=== PATIENT | male | born 1960 | race Caucasian/White ===

== ENCOUNTER 2016-05-22 19:55 | Emergency (ER) | payer MEDICAID ==
[2015-03-30 08:30] VITALS: BMI 25.8
[~2016-05-22 19:55] MED LIST: HYZAAR 50-12.51 TAB PO; LISINOPRIL-HCTZ1 T11 PO; OXYCODONE HCL10 MG PO; PHENERGAN25 M1 PO; RESTORIL15 MG PO; SOMA350 MG PO; XANAX0.5 MG PO
[2016-05-22 21:14] LABS: BASOPHILS 0.1 % (0.0-2.0); EOSINOPHILS 0.8 % (0-7); HEMATOCRIT 48.4 % (42.0-54.0); HEMOGLOBIN 16.9 g/dL (13.5-17.5); IMMATURE GRANULOCYTES 0.2 % (0-5); LYMPHOCYTES 19.8 % (15-50); MCH 34.8 pg (26.0-34.0); MCHC 34.9 g/dL (31.0-37.0); MCV 99.8 fL (80.0-100.0); MEAN PLATELET VOLUME 9.7 fL (7.4-10.4); MONOCYTES 7.8 % (2-11); NEUTROPHILS 71.3 % (40-80); PLATELET COUNT 206 10x3/uL (130-400); RBC 4.85 10x6/uL (4.20-6.10); RDW 13.8 % (11.5-14.5); WBC 10.2 10x3/uL (4.8-10.8)
== END 2016-05-22 22:16 | disposition home or self-care (01) ==
LOC: D.ER 19:55
PROVIDERS: Physician Assistant Medical
DX: M70.51 Other bursitis of knee, right knee (principal); Y93.9 Activity, unspecified; I10 Essential (primary) hypertension; F17.200 Nicotine dependence, unspecified, uncomplicated

== ENCOUNTER → 2017-03-27 18:45 | Outpatient (CLI) | payer MEDICAID ==
[2015-03-30 08:30] VITALS: BMI 25.8
== END | disposition home or self-care (01) ==
LOC: D.LABREF 18:45
DX: R31.9 Hematuria, unspecified (principal)

== ENCOUNTER 2017-05-06 20:09 | Emergency (ER) | payer MEDICAID ==
[2015-03-30 08:30] VITALS: BMI 25.8
== END 2017-05-06 21:31 | disposition home or self-care (01) ==
LOC: D.ER 20:09
DX: J20.9 Acute bronchitis, unspecified (principal); J11.1 Influenza due to unidentified influenza virus with other respiratory manifestations; R50.9 Fever, unspecified; I10 Essential (primary) hypertension; F17.200 Nicotine dependence, unspecified, uncomplicated

== ENCOUNTER 2017-05-14 13:47 | Emergency (ER) | payer MEDICAID ==
[2015-03-30 08:30] VITALS: BMI 25.8
== END 2017-05-14 16:31 | disposition home or self-care (01) ==
LOC: D.ER 13:47
DX: S60.562A Insect bite (nonvenomous) of left hand, initial encounter (principal); W57.XXXA Bitten or stung by nonvenomous insect and other nonvenomous arthropods, initial encounter; Y93.89 Activity, other specified; Y92.89 Other specified places as the place of occurrence of the external cause; I10 Essential (primary) hypertension

== ENCOUNTER 2017-06-07 18:20 | Emergency (ER) | payer MEDICAID ==
[2015-03-30 08:30] VITALS: BMI 25.8
[2017-06-07 20:07] LABS: APPEARANCE CLEAR (CLEAR); BILIRUBIN NEGATIVE (NEGATIVE); COLOR YELLOW (YELLOW); GLUCOSE NEGATIVE (NEGATIVE); KETONE NEGATIVE (NEGATIVE); NITRITE NEGATIVE (NEGATIVE); PROTEIN NEGATIVE (NEGATIVE); SPECIFIC GRAVITY 1.015 (1.005-1.020); UROBILINOGEN NORMAL (NORMAL)
[2017-06-07 20:21] LABS: RED CELLS - URINE 0-5 /hpf (0-5); WHITE CELLS - URINE 0-5 /hpf (0-5)
[2017-06-07 20:23] LABS: BACTERIA FEW /hpf (NONE SEEN)
== END 2017-06-07 21:50 | disposition home or self-care (01) ==
LOC: D.ER 18:20
PROVIDERS: Family Medicine
DX: S30.1XXA Contusion of abdominal wall, initial encounter (principal); Y04.2XXA Assault by strike against or bumped into by another person, initial encounter; Y93.89 Activity, other specified; Y92.89 Other specified places as the place of occurrence of the external cause; S16.1XXA Strain of muscle, fascia and tendon at neck level, initial encounter; Q61.3 Polycystic kidney, unspecified; F17.200 Nicotine dependence, unspecified, uncomplicated

== ENCOUNTER 2017-06-27 20:20 | Emergency (ER) | payer MEDICAID ==
[2015-03-30 08:30] VITALS: BMI 25.8
[2017-06-27 21:13] LABS: BASOPHILS 0.3 % (0-2); EOSINOPHILS 1.9 % (0-7); HEMATOCRIT 45.5 % (42.0-54.0); HEMOGLOBIN 16.2 g/dL (13.5-17.5); LYMPHOCYTES 30.3 % (15-50); MCHC 35.6 g/dL (31.0-37.0); MCV 95.4 fL (80.0-100.0); MEAN PLATELET VOLUME 9.7 fL (7.4-10.4); MONOCYTES 10.5 % (2-11); PLATELET COUNT 203 10x3/uL (130-400); RBC 4.77 10x6/uL (4.20-6.10); RDW 13.5 % (11.5-14.5); WBC 6.5 10x3/uL (4.8-10.8)
[2017-06-27 21:36] LABS: COLOR YELLOW (YELLOW)
[2017-06-27 21:37] LABS: APPEARANCE CLEAR (CLEAR); BILIRUBIN NEGATIVE (NEGATIVE); GLUCOSE NEGATIVE (NEGATIVE); KETONE NEGATIVE (NEGATIVE); NITRITE NEGATIVE (NEGATIVE); PROTEIN NEGATIVE (NEGATIVE); UROBILINOGEN NORMAL (NORMAL)
[2017-06-27 21:55] LABS: ANION GAP 9.3 mmol/L (8-16); BILIRUBIN - TOTAL 0.45 mg/dL (0.2-1.3); CALCIUM 9.6 mg/dL (8.5-10.1); CARBON DIOXIDE 26.3 mmol/L (21.0-32.0); CREATININE - SERUM 1.1 mg/dL (0.6-1.3); POTASSIUM - SERUM 3.6 mmol/L (3.5-5.1); PROTEIN - SERUM 6.2 g/dL (6.4-8.2)
== END 2017-06-27 22:31 | disposition home or self-care (01) ==
LOC: D.ER 20:20
PROVIDERS: Emergency Medicine
DX: Q61.3 Polycystic kidney, unspecified (principal); Z87.448 Personal history of other diseases of urinary system; F17.200 Nicotine dependence, unspecified, uncomplicated